=== PATIENT | male | born 1990 | race Two or more races ===

== ENCOUNTER 2018-05-08 14:46 | Emergency (ER) | payer MEDICAID ==
[~2018-05-08] VITALS: Ht 165.1 cm; Wt 81.6 kg
[~2018-05-08 14:46] MED LIST: NKM; VIBRAMYCIN100 MG ORAL
--- NOTE | 2018-05-08 14:56 | NUR ---
ED Nurse Note: Pt came in due to laceration on his left hand from a sharp object on a table x 20mins ago. Noted 1.5cm and 1cm laceration and no active bleding at this time. Pressure dressing applied.
[2018-05-08] MEDS ORDERED: Tetanus/Diptheria/Pertussis Vaccine 0.5ml Syr IM ONE (15:00)
[2018-05-08 15:25] VITALS: BP 142/91
--- NOTE | 2018-05-08 15:26 | Emergency Room Report ---
History of Present Illness General Chief Complaint: Laceration Source: Patient Present Illness HPI 27-year-old male presents to the emergency department complaining of 5 out of 10 in severity localized pain, bleeding and open wound to the left palm 20 minutes. Patient reports that he was helping a friend move a table of his main out of a large piece of sheet metal which subsequently cut his palm. Patient reports bleeding has subsided at this time with pressure. Patient denies taking blood thinning medications he states he is not sure when his last tetanus vaccination was and he denies intentional self infliction of this laceration. Patient is right-hand dominant. Allergies: Coded Allergies: No Known Allergies (Unverified , 05/08/18) Patient History Past Medical History: see triage record Past Surgical History: none Pertinent Family History: none Reviewed Nursing Documentation: PMH: Agreed; PSxH: Agreed Nursing Documentation-PMH Past Medical History: No Stated History Review of Systems All Other Systems: negative except mentioned in HPI Physical Exam Vital Signs Date Time Temp Pulse Resp B/P (MAP) Pulse Ox O2 Delivery O2 Flow Rate FiO2 05/08/18 14:48 98.6 96 16 142/91 97 Room Air Sp02 EP Interpretation: reviewed, normal General Appearance: no apparent distress, alert, GCS 15, non-toxic Head: normocephalic, atraumatic Eyes: bilateral eye normal inspection, bilateral eye PERRL ENT: hearing grossly normal, normal voice Neck: full range of motion Respiratory: chest non-tender, lungs clear, normal breath sounds, speaking full sentences Cardiovascular #1: regular rate, rhythm Musculoskeletal: back normal, gait/station normal, normal range of motion, non- tender Neurologic: alert, oriented x3, responsive, motor strength/tone normal, sensory intact, speech normal, grossly normal Psychiatric: judgement/insight normal Skin: normal color, no rash, warm/dry, well hydrated, laceration - 2cm left palmar laceration. flap. Procedures Laceration/Wound Repair Laceration/Wound Repair : Consent: Verbal Wound Location: upper extremity - left palm Wound's Depth, Shape: flap Wound Length (cm): 2 Wound Explored: contaminated Irrigated w/ Saline (ccs): 1000 Anesthesia: Lidocaine w/ Epi Volume Anesthetic (ccs): 4 Wound Repaired With: sutures Suture Size/Type: 4:0 Number of Sutures: 8 Layer Closure?: No Sterile Dressing Applied?: Yes Splint Applied?: Yes - Hand splint Sling Applied?: No Patient Tolerated: Well Complications: None Medical Decision Making PA Attestation Dr. Garg is my supervising Physician whom patient management has been discussed with. Diagnostic Impression: Primary Impression: Laceration ER Course 27-year-old male presents to the emergency department complaining of 5 out of 10 in severity localized pain, bleeding and open wound to the left palm 20 minutes. Patient reports that he was helping a friend move a table of his main out of a large piece of sheet metal which subsequently cut his palm. Patient reports bleeding has subsided at this time with pressure. Patient denies taking blood thinning medications he states he is not sure when his last tetanus vaccination was and he denies intentional self infliction of this laceration. Patient is right-hand dominant. Ddx considered but are not limited to laceration, tendon injury, cellulitis, amputation Vital signs: are WNL, pt. is afebrile H&PE are most consistent with: 2cm left palmar flap laceration. ORDERS: none required at this time, the diagnosis is clinical ED INTERVENTIONS: -Tetanus vaccine was administered as pt. vaccination status was unknown. - The wound was copiously irrigated with normal saline, and explored for foreign body for which no FB was found. - pt. is anesthetized with 1%lidocaine w. epi - The wound was approximated and closed using 8 interrupted and/or vertical mattress 4.0 Ethilon sutures. -Bacitracin and sterile dressing is applied. Discussed with patient: That we make every effort to approximate the laceration as best as we can so that scarring will be as cosmetically pleasing as possible with our limited cosmetic skill set in the Emergency dept. Regardless of our best efforts there will be scarring after laceration repair. The extent of scarring is unknown at this time. DISCHARGE: At this time pt. is stable for d/c to home. Will provide printed patient care instructions, and any necessary prescriptions. Care plan and follow up instructions have been discussed with the patient prior to discharge. Last Vital Signs Date Time Temp Pulse Resp B/P (MAP) Pulse Ox O2 Delivery O2 Flow Rate FiO2 05/08/18 14:48 98.6 96 16 142/91 97 Room Air Disposition: HOME, SELF-CARE Condition: Stable Scripts Bacitracin Zinc* (BACITRACIN ZINC*) 1 Each Packet 1 APPLIC TOPIC THREE TIMES A DAY, #28.3 PACKET Prov: Tianna Whaley 05/08/18 Cephalexin* (KEFLEX*) 500 Mg Capsule 500 MG ORAL EVERY 12 HOURS for 7 Days, #14 CAP 0 Refills Prov: Tianna Whaley 05/08/18 Patient Instructions: Laceration Care, Adult Additional Instructions: Take medications as directed. SUTURES TO BE REMOVED IN 10 DAYS Follow up with a Primary Care Provider in 3-5 days, even if your symptoms have resolved. --Please review list of primary care clinics, if you do not already have a primary care provider Return sooner to ED if new symptoms occur, or current symptoms become worse. - Please note that this Emergency Department Report was dictated using [employer] machine adjuster technology software, occasionally this can lead to erroneous entry secondary to interpretation by the dictation equipment. Tianna Whaley May 08, 2018 15:26
[2018-05-08] MEDS ORDERED: CEPHALEXIN500 MG ORAL (15:27)
[2018-05-08] MEDS ORDERED: BACITRACIN ZIN1 EACH TOPIC (15:27)
[2018-05-08] MEDS ORDERED: Hydrogen Peroxide 473ml Bottle TOPIC ONE (15:30)
[2018-05-08] MEDS ORDERED: Lidocaine 1% 10mg/ml/Epi 0.005mg/ml 30ml vial INJ ONE (15:30)
[2018-05-08] MEDS ORDERED: Bacitracin Oint UD TOPIC ONE ×2 (16:15→16:16)
--- NOTE | 2018-05-08 16:29 | NUR ---
ED Nurse Note: pt cleared to d/c per ER provider, pt d/c instruction and prescription provided per Provider, pt education done via discussion and hand out, pt advised to follow up with pcp to continue care, pt verbalized understanding and agrees with plan, wristband removed. pt vss, ambulatory w/ steady gait. all belongings left w/ pt. ED Nurse Note:
== END 2018-05-08 16:42 | disposition home or self-care (01) ==
LOC: EMR 15:23
DX: S61.411A Laceration without foreign body of right hand, initial encounter (principal); W45.8XXA Other foreign body or object entering through skin, initial encounter; Y92.89 Other specified places as the place of occurrence of the external cause; Z23 Encounter for immunization
CPT/HCPCS: 12001; 29125; 90471; 90715; 99283; Z7502

== ENCOUNTER 2018-05-18 16:30 | Emergency (ER) | payer MEDICAID ==
[~2018-05-18] VITALS: Ht 152.4 cm; Wt 81.6 kg
[~2018-05-18 16:30] MED LIST changes: +BACITRACIN ZIN1 EACH TOPIC; +CEPHALEXIN500 MG ORAL
[2018-05-18 17:00] VITALS: BP 114/68
--- NOTE | 2018-05-18 17:00 | NUR ---
ED Nurse Note: AMBULATED IN TO ER DUE TO STITCHES REMOVAL ON LEFT HAND THAT WAS DONE 10 DAYS AGO. NO S/S OF INFECTION.
--- NOTE | 2018-05-18 17:57 | Emergency Room Report ---
History of Present Illness General Chief Complaint: Wound Recheck/Suture Removal Source: Patient Present Illness Allergies: Coded Allergies: No Known Allergies (Unverified , 05/08/18) Nursing Documentation-[facility] Past Medical History: No Stated History Physical Exam Vital Signs Date Time Temp Pulse Resp B/P (MAP) Pulse Ox O2 Delivery O2 Flow Rate FiO2 05/18/18 16:54 98.8 63 16 114/68 97 Room Air Medical Decision Making PA Attestation Dr. Garg is my supervising Physician whom patient management has been discussed with. Diagnostic Impression: Primary Impression: Encounter for re-check of laceration wound Last Vital Signs Date Time Temp Pulse Resp B/P (MAP) Pulse Ox O2 Delivery O2 Flow Rate FiO2 05/18/18 17:00 98.8 63 16 114/68 97 Room Air Disposition: HOME, SELF-CARE Condition: Stable Patient Instructions: Wound Check Additional Instructions: Take previously prescribed medications as directed. (ointment) Leave sutures for another 5-7 days * Follow up with a Primary Care Provider in 3-5 days, even if your symptoms have resolved. --Please review list of primary care clinics, if you do not already have a primary care provider Return sooner to ED if new symptoms occur, or current symptoms become worse. - Please note that this Emergency Department Report was dictated using [employer] machine setter technology software, occasionally this can lead to erroneous entry secondary to interpretation by the dictation equipment. Tianna Whaley May 18, 2018 17:57
[2018-05-18 18:22] VITALS: BP 114/68
--- NOTE | 2018-05-18 18:23 | NUR ---
ER Nurse Note: A/OX4. PT IS CLEARED BY CHARI GARCIA. DC INSTRUCTION AND PRESCRIPTIONS GIVEN, PT VERBALIZED UNDERSTSANDING. IV/ID WRISTBAND REMOVED. ALL BELONGINGS TAKEN BY PT. DENIES ANY PAIN AT THIS TIME. PT AMBULATED OUT OF ER WITH STEADY GAIT.
== END 2018-05-18 18:20 | disposition home or self-care (01) ==
LOC: EMR 17:30
DX: Z48.01 Encounter for change or removal of surgical wound dressing (principal)
CPT/HCPCS: 99282

== ENCOUNTER 2018-05-28 14:28 | Emergency (ER) | payer MEDICAID ==
[~2018-05-28] VITALS: Ht 165.1 cm; Wt 83.9 kg
--- NOTE | 2018-05-28 14:39 | NUR ---
ED Nurse Note: Pt came into the Er for left hand suture removal. Pt denies pain. A + O x4. Ambulatory. Skin warm to touch.
[2018-05-28 14:40] VITALS: BP 110/75
--- NOTE | 2018-05-28 14:52 | Emergency Room Report ---
History of Present Illness General Chief Complaint: Wound Recheck/Suture Removal Source: Patient Present Illness HPI 27 YO male presents to the ED for suture removal of left hand laceration placed over 10 days ago. pt. denies pain, bleeding , erythema or warmth. denies d/c. Pt. is UTD with tdap. Allergies: Coded Allergies: No Known Allergies (Unverified , 05/08/18) Patient History Past Medical History: see triage record Past Surgical History: none Pertinent Family History: none Immunizations: UTD Reviewed Nursing Documentation: PMH: Agreed; PSxH: Agreed Nursing Documentation-PMH Past Medical History: No Stated History Review of Systems All Other Systems: negative except mentioned in HPI Physical Exam Vital Signs Date Time Temp Pulse Resp B/P (MAP) Pulse Ox O2 Delivery O2 Flow Rate FiO2 05/28/18 14:36 97.5 66 18 115/74 98 Room Air Sp02 EP Interpretation: reviewed, normal General Appearance: no apparent distress, alert, GCS 15, non-toxic Head: normocephalic, atraumatic Eyes: bilateral eye normal inspection, bilateral eye PERRL ENT: hearing grossly normal, normal voice Neck: full range of motion Respiratory: lungs clear, normal breath sounds, speaking full sentences Cardiovascular #1: regular rate, rhythm, normal capillary refill Musculoskeletal: back normal, gait/station normal, normal range of motion, non- tender Neurologic: alert, oriented x3, responsive, motor strength/tone normal, sensory intact, speech normal, grossly normal Psychiatric: judgement/insight normal Skin: normal color, no rash, warm/dry, well hydrated, wd healing/no infection noted - left palm laceration with sutures in place. Medical Decision Making PA Attestation Dr. Pennington is my supervising Physician whom patient management has been discussed with. Diagnostic Impression: Primary Impression: Encounter for removal of sutures ER Course 27 YO male presents to the ED for suture removal of left hand laceration placed over 10 days ago. pt. denies pain, bleeding , erythema or warmth. denies d/c. Pt. is UTD with tdap. Ddx considered but are not limited to laceration, tendon injury, cellulitis, dehiscence. Vital signs: are WNL, pt. is afebrile H&PE are most consistent with: healed laceration of the Left Palm ORDERS: none required at this time, the diagnosis is clinical ED INTERVENTIONS: - Sutures removed. -some thickened/ calloused skin/ at laceration site, no infection. DISCHARGE: At this time pt. is stable for d/c to home. Will provide printed patient care instructions, and any necessary prescriptions. Care plan and follow up instructions have been discussed with the patient prior to discharge. Last Vital Signs Date Time Temp Pulse Resp B/P (MAP) Pulse Ox O2 Delivery O2 Flow Rate FiO2 05/28/18 14:40 97.5 78 20 110/75 97 Room Air Disposition: HOME, SELF-CARE Condition: Stable Patient Instructions: Suture Removal, Care After Additional Instructions: Take medications as directed. Follow up with a Primary Care Provider in 3-5 days, even if your symptoms have resolved. --Please review list of primary care clinics, if you do not already have a primary care provider Return sooner to ED if new symptoms occur, or current symptoms become worse. - Please note that this Emergency Department Report was dictated using [employer]medi[employer] academic allergist technology software, occasionally this can lead to erroneous entry secondary to interpretation by the dictation equipment. Tianna Whaley May 28, 2018 14:52
[2018-05-28 15:00] VITALS: BP 110/77
--- NOTE | 2018-05-28 15:01 | NUR ---
ER DISCHARGE NOTE: Patient is cleared to be discharged per ERMD, pt is aox4, on room air, with stable vital signs. pt was given dc and prescription instructions, pt was able to verbalize understanding, pt id band removed without complications. pt is able to ambulate with steady gait. pt took all belongings.
== END 2018-05-28 15:01 | disposition home or self-care (01) ==
LOC: EMR 14:45
DX: Z48.02 Encounter for removal of sutures (principal)
CPT/HCPCS: 99281

== ENCOUNTER 2019-05-12 10:49 | Emergency (ER) | payer MEDICAID ==
[~2019-05-12] VITALS: Ht 165.1 cm; Wt 81.2 kg
[2019-05-12 10:53] VITALS: BP 116/67
[2019-05-12] MEDS ORDERED: LIDOCAINE VISC100 ML ORAL (11:54)
[2019-05-12] MEDS ORDERED: IBUPROFEN600 MG ORAL (11:54)
[2019-05-12] MEDS ORDERED: AMOXICILLIN500 MG ORAL (11:54)
--- NOTE | 2019-05-12 11:58 | Emergency Room Report ---
History of Present Illness General Chief Complaint: Sore Throat Source: Patient Present Illness HPI Patient is a 28-year-old male presents after increased for throat for the past 1 week. He reports a gradual onset of symptoms. Increased difficulty with swallowing. Reports having pain to the left side of his throat as well as to the left ear. Denies any hearing changes. Had not been vomiting. Denies prior symptoms like this in the past. Had not been having any cough. Allergies: Coded Allergies: No Known Allergies (Unverified , 05/08/18) Patient History Past Medical History: see triage record Reviewed Nursing Documentation: PMH: Agreed; PSxH: Agreed Nursing Documentation-PMH Past Medical History: No Stated History Review of Systems All Other Systems: negative except mentioned in HPI Physical Exam Vital Signs Date Time Temp Pulse Resp B/P (MAP) Pulse Ox O2 Delivery O2 Flow Rate FiO2 05/12/19 10:53 98.4 62 16 116/67 (83) 97 Room Air General Appearance: well appearing, no apparent distress, alert, GCS 15 Head: normocephalic, atraumatic ENT: normal voice, TMs + canals normal, tonsillar swelling, tonsillar exudate Neck: full range of motion, supple Respiratory: lungs clear, no respiratory distress, speaking full sentences Cardiovascular #1: normal inspection, normal peripheral pulses Gastrointestinal: normal inspection Neurologic: alert, motor strength/tone normal, oriented x3, normal gait Psychiatric: mood/affect normal Skin: no rash Medical Decision Making Diagnostic Impression: Primary Impression: Tonsillitis with exudate ER Course Patient presented for sore throat. Differential diagnosis include was not limited to tonsillitis, mononucleosis, strep pharyngitis among others. Patient has an overall benign exam and does not appear to have any evidence of abscess at this time. He appears to be suffering from some exudative tonsillitis. He was given prescription for medications for symptomatic treatment as well as amoxicillin. He was advised to return if worse. Patient was advised to return if any worsening condition. He is advised to follow-up with his primary care physician for recheck in 2 to 3 days. Last Vital Signs Date Time Temp Pulse Resp B/P (MAP) Pulse Ox O2 Delivery O2 Flow Rate FiO2 05/12/19 10:53 98.4 16 116/67 97 Room Air 05/12/19 10:53 62 Status: improved Disposition: HOME, SELF-CARE Condition: Stable Scripts Lidocaine HCl 2% Viscous (Lidocaine HCl 2% Viscous) 100 Ml Solution 15 ML ORAL QID, #100 ML Prov: Gaurang Garg MD 05/12/19 Ibuprofen* (MOTRIN*) 600 Mg Tablet 600 MG ORAL Q8H PRN for For Pain, #20 TAB 0 Refills Prov: Gaurang Garg MD 05/12/19 Amoxicillin* (AMOXIL*) 500 Mg Capsule 500 MG ORAL THREE TIMES A DAY, #21 CAP Prov: Gaurang Garg MD 05/12/19 Patient Instructions: Tonsillitis Gaurang Garg MD May 12, 2019 11:58
[2019-05-12 12:00] VITALS: BP 122/70
--- NOTE | 2019-05-12 12:00 | NUR ---
ER DISCHARGE NOTE: Pt was seen due to sore throat. Patient is cleared to be discharged per ERMD, pt is aox4, on room air, with stable vital signs. pt was given dc and prescription instructions, pt was able to verbalize understanding, pt id band removed without complications. pt is able to ambulate with steady gait. pt took all belongings.
== END 2019-05-12 12:00 | disposition home or self-care (01) ==
LOC: EMR 11:05
DX: J03.90 Acute tonsillitis, unspecified (principal)
CPT/HCPCS: 99282